=== PATIENT | male | born 1930 | race Asian ===

== ENCOUNTER 2017-06-30 01:21 | Inpatient (IN) | payer OTHER, MEDICARE ==
--- NOTE | 2017-06-30 01:31 | PDOC ---
History of Present Illness - General Chief Complaint: Pain Stated Complaint: ABD PAIN Time Seen by Provider: 06/30/17 01:30 - History of Present Illness Initial Comments: 06/30/17 01:52 This 86-year-old man with a history of prediabetes and BPH presents with 2 day history of nausea and abdominal pain. Patient states that he ate a hamburger 2 nights ago and subsequently developed abdominal pain. Pain is dull and intermittent, periumbilical in location. He also describes nausea and vomiting , especially after eating or drinking anything. Patient has a long history of gallstones and has had acute biliary colic in the past. He states that he would decrease his oral intake when experiencing biliary colic and pain would resolve within a day. No history of gallbladder pain resulting in hospitalization. No history of acute pancreatitis or other pancreatic issues. He has had no previous abdominal surgery. Patient is approximately 4 weeks s/p blue laser procedure for BPH Medications Metformin Past History - Past Medical History Allergies/Adverse Reactions: Allergies Allergy/AdvReac Type Severity Reaction Status Date / Time No Known Allergies Allergy Unverified 06/30/17 01:27 Home Medications: Ambulatory Orders Glyburide 5 mg PO DAILY 06/30/17 Metformin HCl [Glucophage] 1,000 mg PO BID 06/30/17 Diabetes: Yes - Psycho/Social/Smoking Cessation Hx Anxiety: No Suicidal Ideation: No Smoking History: Unknown if ever smoked Have you smoked in the past 12 months: No Number of Cigarettes Smoked Daily: 0 Information on smoking cessation initiated: No Hx Alcohol Use: No Drug/Substance Use Hx: No Substance Use Type: None Review of Systems - Review of Systems Able to Perform ROS?: Yes Comments:: 12 point review of systems is negative except for what is noted in the history of present illness *Physical Exam - Vital Signs Last Vital Signs Temp Pulse Resp BP Pulse Ox 98.4 F 68 14 125/64 100 06/30/17 01:23 06/30/17 01:23 06/30/17 01:06/30/17 01:06/30/17 01:23 - Physical Exam Comments: GENERAL: Elderly man, alert and oriented 3, in mild distress secondary to abdominal pain HEAD: Normal with no signs of trauma. EYES: PERRLA, EOMI, sclera anicteric, conjunctiva clear. ENT: Ears normal, nares patent, oropharynx clear without exudates. Dry mucous membranes. NECK: Normal range of motion, supple without lymphadenopathy, JVD, or masses. LUNGS: Breath sounds equal, clear to auscultation bilaterally. No wheezes, and no crackles. HEART:Regular rate and rhythm, normal S1 and S2 without murmur, rub or gallop. ABDOMEN:.normal bowel sounds No guarding,tenderness or rebound.No masses No distention. No Dupont sign EXTREMITIES: Normal range of motion, no edema. No clubbing or cyanosis. No erythema, or tenderness. NEUROLOGICAL: Cranial nerves II through XII grossly intact. Normal speech. No focal neurological deficits. MUSCULOSKELETAL: Back non-tender to palpation, no CVA tenderness SKIN: Warm, Dry, normal turgor, no rashes or lesions noted. 12 lead EKG is is performed. This shows sinus bradycardia at 57 bpm; axis, wave forms and intervals are normal. There is no acute ST or T-wave abnormalities. ED Treatment Course - LABORATORY CBC & Chemistry Diagram: 07/01/17 07:00 07/01/17 07:00 Progress Note - Progress Note Progress Note: Laboratory evaluation notable for white blood cell, 15,300 with a predominance of neutrophils. RBCs are microcytic and hypochromic. Chemistry profile reveals BUN of 46 with creatinine 1.7 ( creatinine clearance of 38). No previous laboratory values are obtainable. CK and troponin are negative. Lipase is 228 (within normal limits). Urinalysis notable for microscopic exam showing 164 RBCs/1397 WBCs with moderate bacteria Abdominal/pelvic CT performed to evaluate for cause for patient's mid abdominal pain (especially in light of normal lipase value). CT notable for atrophic/calcified pancreas consistent with chronic pancreatitis. Along with this finding, there is significant duodenitis, especially with distal wall thickening. No evidence of bowel obstruction, abscess or free air. There are multiple gallstones without distinct gallbladder inflammation. No biliary duct dilatation is present. Bladder is somewhat dilated with mass at the base of the bladder, consistent with enlarged prostate gland. No clear obstructive uropathy Patient had recurrence of mid abdominal pain requiring 2 doses of morphine; he also had nausea requiring Zofran 4 mg IV ([address] doses). [address] completed, patient again had recurrence of his midabdominal pain and given Dilaudid 0.5 [address] of CT and blood work discussed with the patient and his son. Patient has had symptoms consistent with a UTI since his bluelight laser procedure 1 month ago; he states that he is been on multiple antibiotics (cannot recall name ) without apparent resolution. Patient cannot recall previous diagnosis of peptic ulcer disease. He takes antacid tablets on a daily basis but has never had upper endoscopy as far as he can remember. No history of Crohn's disease or other inflammatory bowel disease. Because of the patient's persistent nausea/abdominal pain, evidence of duodenitis/chronic pancreatitis/UTI with elevated white blood cell count, patient will require admission for control of pain/nausea and further evaluation of his duodenitis. Also, patient was given a reduced dose (2.25 g) of Zosyn IV for treatment of apparent persistent UTI. Culture and sensitivity of urine sample sent. Medical Decision Making - Medical Decision Making 06/30/17 06:[address] Patient[address] Krause. Case discussed with [facility] service: Patient will be admitted to 's service for IV hydration, pain control and further diagnostic evaluation. 06/30/17 06:47 Patient's family has expressed concern that he is not being admitted to his [facility] s admitting hospital ([place]) Called Dr. Krause' answering service and was connected with covering physician, (with whom patient had spoken at midnight). He states that it is in the patient's best interest to remain here at [facility], considering that admission will likely not be protracted. He will contact Dr Krause and relay this information *DC/Admit/Observation/Transfer Diagnosis at time of Disposition: Acute duodenitis Chronic pancreatitis Qualifiers: Pancreatitis type: idiopathic Qualified Code(s): K86.1 - Other chronic pancreatitis UTI (urinary tract infection) Qualifiers: Urinary tract infection type: site unspecified Hematuria presence: without hematuria Qualified Code(s): N39.0 - Urinary tract infection, site not specified - Discharge Dispostion Condition at time of disposition: Stable Admit: Yes
[2017-06-30] MEDS ORDERED: KETOROLAC TROMETHAMINE 30 MG/1 ML VIAL IVPUSH ONE (01:32)
[2017-06-30] MEDS ORDERED: SODIUM CHLORIDE 1,000 ML IV STA (01:32)
[2017-06-30] MEDS ORDERED: ONDANSETRON 4 MG/2 ML VIAL IVPUSH ONE ×2 (01:49→02:37)
[2017-06-30] MEDS ORDERED: ONDANSETRON 4 MG/2 ML VIAL ONE ×2 (02:03→02:37)
[2017-06-30] MEDS ORDERED: KETOROLAC TROMETHAMINE 30 MG/1 ML VIAL ONE (02:03)
[2017-06-30 02:11] LABS: BASOPHIL 0.1 % (0-2.0); EOSINOPHIL 0.1 % (0-4.5); MCHC 31.3 g/dl (32.0-35.9); MEAN CELL VOLUME 63.9 fl (80-96); MEAN PLT VOLUME 9.9 fl (7.5-11.1); NEUTROPHILS 83.7 % (42.8-82.8); PLATELET COUNT 143 K/MM3 (134-434); RDW 15.5 % (11.9-15.9); WHITE BLOOD COUNT 15.3 K/mm3 (4.0-10.0)
[2017-06-30 02:19] LABS: URINE APPEARANCE CLOUDY; URINE BILIRUBIN NEGATIVE (NEGATIVE); URINE BLOOD 2+ (NEGATIVE); URINE COLOR YELLOW; URINE GLUCOSE (UA) NEGATIVE (NEGATIVE); URINE KETONE TRACE (NEGATIVE); URINE NITRITE NEGATIVE (NEGATIVE); URINE UROBILINOGEN NEGATIVE mg/dL (0.2-1.0)
[2017-06-30 02:20] LABS: URINE LEUK ESTERASE 3+ (NEGATIVE); URINE PROTEIN 1+ (NEGATIVE)
[2017-06-30 02:26] LABS: URINE BACTERIA MODERATE /hpf (NONE SEEN); URINE MUCUS RARE; URINE RBC 164 /hpf (0-3); URINE WBC 1397 /hpf (3-5)
[2017-06-30 02:43] LABS: ALBUMIN 3.3 g/dl (3.4-5.0); ALK PHOS 58 U/L (45-117); ANION GAP 12 (8-16); BILIRUBIN,TOTAL 0.6 mg/dL (0.2-1.0); CALCIUM 8.9 mg/dL (8.5-10.1); CO2 22 mmol/L (21-32); CREATININE 1.7 mg/dL (0.7-1.3); GLUCOSE,RANDOM 216 mg/dL (74-106); SGOT/AST 21 U/L (15-37); SGPT/ALT 31 U/L (12-78); TOT PROT 7.7 g/dl (6.4-8.2)
[2017-06-30 02:47] LABS: CPK 142 IU/L (39-308); TROPONIN I < 0.02 ng/ml (0.00-0.05)
[2017-06-30 02:52] LABS: INR 1.04 (0.82-1.09); PROTHROMBIN TIME (PATIENT) 11.4 SEC (9.98-11.88)
[2017-06-30] MEDS ORDERED: morphine CARPU-JECT 2 MG/1 ML DISP.SYRIN IVPUSH ONE ×3 (03:41→04:47)
[2017-06-30] MEDS ORDERED: morphine CARPU-JECT 2 MG/1 ML DISP.SYRIN ONE ×2 (03:43→03:55)
[2017-06-30] MEDS ORDERED: HYDROmorphone HCL CARPU-JECT 1 MG/1 ML DISP.SYRIN IVPUSH ONE ×2 (05:27→08:03)
[2017-06-30] MEDS ORDERED: PIPERACILLIN/TAZOB 2.25 GM 2.25 GM in DEXTROSE 5%-WATER - 50 ML IVPB ONE (05:28)
[2017-06-30] MEDS ORDERED: PIPERACILLIN/TAZOBACTAM 3.375 GM VIAL IVPB ONE (05:30)
[2017-06-30] MEDS ORDERED: HYDROmorphone HCL CARPU-JECT 1 MG/1 ML DISP.SYRIN ONE ×2 (05:30→07:57)
[2017-06-30] MEDS ORDERED: FAMOTIDINE 20 MG/50 ML IVPB 50 ML IVPB ONE ×2 (05:46→06:01)
[2017-06-30 06:30] LABS: ANISOCYTOSIS 1+; HYPOCHROMIA 2+; MICROCYTOSIS 2+; PLATELET ESTIMATE ADEQUATE (NORMAL)
--- NOTE | 2017-06-30 08:29 | HP ---
CHIEF COMPLAINT: abdominal discomfort PCP: Dr Krause ([place]) Urologist: Dr Malik ([place]) HISTORY OF PRESENT ILLNESS: Patient is a 86 y/o male with a past medical history of NIDDM and BPH. patient is s/p greenlight procedure, 06/07/17, Dr Guerrero at [facility]. Patient reports ongoing urinary tract infections since the procedure and was treated with several antibiotics. He was last treated with antibiotics on Tuesday, , he is unable to recall the name. Patient reports awakening on Tuesday, 06/27 with ongoing epigastric pain. At first he attributed his symptoms to an acute billary attack and decreased his po intake. He reports the abdominal pain worsened within the past 3 days. In addition, he also reports chills and rigors early this AM with worsening of abdominal pain as result he drove himself to the emergency department. ER course was notable for: (1) ct of abd/pelvis w/o contrast: mild left-sided hydronephrosis, thick-walled urinary bladder,slightly thickened duodenem suspicious for dueodenitis, cholelithasis, chronic pancreatitis (2) wbc 15.3 (3) creatine 1.7 Recent Travel: none PAST MEDICAL HISTORY: niddm and bph PAST SURGICAL HISTORY: green light procedure 06/07/17 Social History: resides at home with Smoking: none Alcohol:none Drugs: none Family History: noncontributory Allergies No Known Allergies Allergy (Unverified 06/30/17 01:27) HOME MEDICATIONS: Home Medications Medication Instructions Recorded Glyburide 5 mg PO DAILY 06/30/17 Metformin HCl [Glucophage] 1,000 mg PO BID 06/30/17 REVIEW OF SYSTEMS CONSTITUTIONAL: Absent: fever, chills, diaphoresis, generalized weakness, malaise, loss of appetite, weight change HEENT: Absent: rhinorrhea, nasal congestion, throat pain, throat swelling, difficulty swallowing, mouth swelling, ear pain, eye pain, visual changes CARDIOVASCULAR: Absent: chest pain, syncope, palpitations, irregular heart rate, lightheadedness , peripheral edema RESPIRATORY: Absent: cough, shortness of breath, dyspnea with exertion, orthopnea, wheezing, stridor, hemoptysis GASTROINTESTINAL: Present: abdominal pain, nausea Absent:abdominal distension, vomiting, diarrhea, constipation, melena, hematochezia GENITOURINARY: Absent: dysuria, frequency, urgency, hesitancy, hematuria, flank pain, genital pain MUSCULOSKELETAL: Absent: myalgia, arthralgia, joint swelling, back pain, neck pain SKIN: Absent: rash, itching, pallor HEMATOLOGIC/IMMUNOLOGIC: Absent: easy bleeding, easy bruising, lymphadenopathy, frequent infections ENDOCRINE: Absent: unexplained weight gain, unexplained weight loss, heat intolerance, cold intolerance NEUROLOGIC: Absent: headache, focal weakness or paresthesias, dizziness, unsteady gait, seizure, mental status changes, bladder or bowel incontinence PSYCHIATRIC: Absent: anxiety, depression, suicidal or homicidal ideation, hallucinations. PHYSICAL EXAMINATION GENERAL: Awake, alert, and fully oriented, in no acute distress. HEAD: Normal with no signs of trauma. EYES: Pupils equal, round and reactive to light, extraocular movements intact, sclera anicteric, conjunctiva clear. No lid lag. EARS, NOSE, THROAT: Ears normal, nares patent, oropharynx clear without exudates. dry mucous membranes. NECK: Normal range of motion, supple without lymphadenopathy, JVD, or masses. LUNGS: Breath sounds equal, clear to auscultation bilaterally. No wheezes, and no crackles. No accessory muscle use. HEART: Regular rate and rhythm, normal S1 and S2 without murmur, rub or gallop. ABDOMEN: Soft, + suprapubic tenderness, not distended, normoactive bowel sounds , no guarding, no rebound, no masses. No hepatomegaly or splenomegaly. MUSCULOSKELETAL: Normal range of motion at all joints. No bony deformities or tenderness. No CVA tenderness. UPPER EXTREMITIES: 2+ pulses, warm, well-perfused. No cyanosis. No clubbing. No peripheral edema. LOWER EXTREMITIES: 2+ pulses, warm, well-perfused. No calf tenderness. No peripheral edema. NEUROLOGICAL: Cranial nerves II-XII intact. Normal speech. Normal gait. PSYCHIATRIC: Cooperative. Good eye contact. Appropriate mood and affect. SKIN: Warm, dry, normal turgor, no rashes or lesions noted, normal capillary refill. ASSESSMENT/PLAN: F/E/N - diabetic diet - replete electrolytes prn ppx - heparin - protonix - oob - scd dispo: requires inpatient admission Problem List - Problem (1) Acute duodenitis Assessment/Plan: - start protonix - bland diet - follow up with GI as outpatient Code(s): K29.80 - DUODENITIS WITHOUT BLEEDING (2) UTI (urinary tract infection) Assessment/Plan: - s/p greenlight procedure, recent instrumentation, start zosyn, appreciate ID input for antibiotic approval - trend wbc and monitor fever curve - follow up urine and blood cultures - appreciate urology input Code(s): N39.0 - URINARY TRACT INFECTION, SITE NOT SPECIFIED Qualifiers: Urinary tract infection type: site unspecified Hematuria presence: without hematuria Qualified Code(s): N39.0 - Urinary tract infection, site not specified; R31.9 - Hematuria, unspecified (3) Diabetes Assessment/Plan: - fingersticks achs with regular insulin sliding scale Code(s): E11.9 - TYPE 2 DIABETES MELLITUS WITHOUT COMPLICATIONS (4) FERMNI (acute kidney injury) Assessment/Plan: - creatine 1.7, unknown baseline, no urinary retention noted on ct scan - fermin likely secondary to hypovolemia, gentle iv hydration, repeat creatine 1400 Code(s): N17.9 - ACUTE KIDNEY FAILURE, UNSPECIFIED Visit type - Emergency Visit Emergency Visit: Yes ED Registration Date: 06/30/17 Care time: The patient presented to the Emergency Department on the above date and was hospitalized for further evaluation of their emergent condition. - New Patient This patient is new to me today: No - Critical Care Critical Care patient: No
[2017-06-30] MEDS ORDERED: ACETAMINOPHEN 325 MG TABLET (FP) PO PRN (09:24)
[2017-06-30] MEDS: PIPERACILLIN/TAZOB 3.375 GM 50 ML IVPB SCH ×2 (11:06→18:58)
[2017-06-30] MEDS: PANTOPRAZOLE SODIUM 100 ML IVPB SCH (11:06)
[2017-06-30] MEDS: HEPARIN NA (PORCINE) 5,000 UNITS/ML 1ML VIAL SQ SCH ×2 (11:06→18:58)
[2017-06-30 11:52] VITALS: BMI 27.3
[2017-06-30] MEDS ORDERED: SODIUM CHLORIDE 1,000 ML IV SCH (12:00)
[2017-06-30] MEDS: INSULIN SLIDING SCALE (NOVOLOG) 1 VIAL SQ SCH ×3 (12:00→21:48)
[2017-06-30] MEDS: LACTOBACILLUS ACIDOPHILUS 1 EACH TAB (FP) PO SCH (13:00)
[2017-06-30 14:25] LABS: MCHC 31.9 g/dl (32.0-35.9); MEAN CELL VOLUME 65.9 fl (80-96); MEAN PLT VOLUME 8.7 fl (7.5-11.1); PLATELET COUNT 122 K/MM3 (134-434); WHITE BLOOD COUNT 10.7 K/mm3 (4.0-10.8)
[2017-06-30 16:25] LABS: ANION GAP 4 (8-16); CALCIUM 7.7 mg/dl (8.4-10.2); CO2 21 mmol/L (22-28); CREATININE 1.5 mg/dl (0.6-1.3); GLUCOSE,RANDOM 182 mg/dl (74-106)
--- NOTE | 2017-06-30 16:42 | PN ---
Progress Note (short form) - Note Progress Note: ID Consult dictated Emphysematous cystitis/UTI ? Peptic ulcer disease Cholelithiasis Azotemia Pending c/s empiric zosyn evaluation Consider GI evaluation
--- NOTE | 2017-06-30 17:29 | CONS ---
INFECTIOUS DISEASE CONSULTATION DATE OF CONSULTATION: 06/30/2017 HISTORY OF PRESENT ILLNESS: The patient is an 86-year-old male with history of diabetes mellitus, BPH, evaluated for abdominal pain syndrome and leukocytosis. The patient reports developing abdominal pain approximately 2 days prior to admission. He began to develop episodic abdominal discomfort localizing to the supraumbilical area and epigastrium. He states he has had similar symptoms in the past, which were relieved by fasting. The symptoms occurred after he had consumed a meal at [facility]. It became progressively worse to the point where he presented to the hospital. In the emergency room, a CAT scan of the abdomen and pelvis was performed and showed evidence of chronic pancreatitis, cholelithiasis, thickened duodenum, as well as mild left hydronephrosis, thick-walled bladder with air. The patient denies any vomiting. He had been belching. He moved his bowels after he arrived in the hospital. Denies any recent diarrhea, melena, or hematochezia. He denied any associated fever or chills. Of note, the patient underwent a BlueLight laser treatment of the prostate on june 07, 2017. He reports that his postoperative course was complicated by cystitis for which he received several oral antibiotics. He was unaware of the name of the antibiotics, however. He denies being informed of any positive urine cultures or resistant urinary pathogens. PAST MEDICAL HISTORY: Positive for diabetes mellitus, BPH, cholelithiasis. ALLERGIES: No known allergies. MEDICATIONS: Include Tylenol, heparin, Bacid, NovoLog, Zofran. SOCIAL HISTORY: He lives at home. He is a non-smoker, non-drinker. SYSTEMS REVIEW: Neurologic: No loss of consciousness, seizure activity, or focal weakness. Cardiac: Negative chest pain or palpitations. Respiratory: Negative cough or sputum production. Gastrointestinal: As per HPI. Genitourinary: Negative for dysuria. Positive for gross hematuria post procedure. LABORATORY DATA: White count on admission 15.3, presently 10.7; hematocrit 31.7; platelet count 122. BUN 46, creatinine 1.7. Liver enzymes normal. Urinalysis: White cells 1397. Culture is pending. PHYSICAL EXAMINATION: General: He is awake and alert, in no acute distress, not acutely toxic appearing. Vital Signs: Temperature 97.7; blood pressure 102/52; pulse 62, regular; respirations 20 per minute. HEENT: Sclerae anicteric. Heart: Sounds S1, S2. Lungs: Clear. Abdomen: Soft. Positive bowel sounds. There is mild tenderness present, supraumbilical area. There is no epigastric or right upper quadrant tenderness. No suprapubic tenderness. Extremities: Negative for edema. IMPRESSION: 1. Emphysematous cystitis. 2. Urinary tract infection. 3. Possible peptic ulcer disease. 4. Cholelithiasis. 5. Azotemia. 6. Leukocytosis. Considerations for abdominal pain include peptic ulcer disease in light of thickened duodenum, biliary tract disease in light of cholelithiasis. Patient with radiographic evidence of emphysematous cystitis. Await culture results, urology evaluation, empiric antibiotic coverage, gastrointestinal and genitourinary pathogens with Zosyn 3.375 g IV piggyback every 8 hours, analgesics. Case discussed with the patient's son present at the time of the examination. Thank you for the kind referral. SHUKRI ARCHIBALD M.D. [id number]
[2017-06-30] MEDS: MELATONIN 5 MG TABLETS PO SCH (22:40)
[2017-07-01] MEDS: PIPERACILLIN/TAZOB 3.375 GM 50 ML IVPB SCH ×3 (01:22→18:12)
[2017-07-01] MEDS: HEPARIN NA (PORCINE) 5,000 UNITS/ML 1ML VIAL SQ SCH ×2 (01:23→09:43)
[2017-07-01] MEDS: INSULIN SLIDING SCALE (NOVOLOG) 1 VIAL SQ SCH ×4 (06:14→21:31)
[2017-07-01 07:36] LABS: BASOPHIL 0.3 % (0-2.0); EOSINOPHIL 1.1 % (0-4.5); MCH 20.4 pg (25.7-33.7); MCHC 31.1 g/dl (32.0-35.9); MEAN CELL VOLUME 65.6 fl (80-96); MEAN PLT VOLUME 8.7 fl (7.5-11.1); NEUTROPHILS 76.3 % (42.8-82.8); PLATELET COUNT 115 K/MM3 (134-434)
[2017-07-01 07:46] LABS: PLATELET ESTIMATE ADEQUATE (NORMAL)
[2017-07-01 07:47] LABS: HYPOCHROMIA 1+; MICROCYTOSIS 2+
[2017-07-01 07:52] LABS: ANION GAP 5 (8-16); CALCIUM 7.8 mg/dl (8.4-10.2); CO2 20 mmol/L (22-28); CREATININE 1.4 mg/dl (0.6-1.3); GLUCOSE,RANDOM 138 mg/dl (74-106); MAGNESIUM 1.7 mg/dL (1.8-2.4); PHOSPHOROUS 2.3 mg/dl (2.5-4.6)
[2017-07-01] MEDS: LACTOBACILLUS ACIDOPHILUS 1 EACH TAB (FP) PO SCH (09:43)
[2017-07-01] MEDS: PANTOPRAZOLE SODIUM 100 ML IVPB SCH (09:43)
--- NOTE | 2017-07-01 10:00 | PN ---
Progress Note, Physician History of Present Illness: Comfortable at present. Reports periumbilical abdominal pain past 24hr on a pain scale of 2/10 + Belching No vomiting. No BM reported No fever/ chills WBC, plt decreased No dysuria/ hematuria Tolerating antibiotics Cultures pending - Current Medication List Current Medications: Active Medications Acetaminophen (Tylenol -) 650 mg PO Q4H PRN PRN Reason: FEVER OR PAIN Heparin Sodium (Porcine) (Heparin -) 5,000 unit SQ Q8H [facility] Last Admin: 07/01/17 09:43 Dose: 5,000 unit Pantoprazole Sodium (Protonix 40mg Ivpb (Pre-Docked)) 100 mls @ 200 mls/hr IVPB DAILY JESSY Last Admin: 07/01/17 09:43 Dose: 200 mls/hr Piperacillin Sod/Tazobactam Sod (Zosyn 3.375gm Ivpb (Pre-Docked)) 50 mls @ 100 mls/hr IVPB Q8H-IV JESSY PRN Reason: Protocol Last Admin: 07/01/17 09:44 Dose: 100 mls/hr Insulin Aspart (Novolog Vial Sliding Scale -) 0 vial SQ ACHS JESSY PRN Reason: Protocol Last Admin: 07/01/17 06:14 Dose: Not Given Lactobacillus Acidophilus (Bacid -) 1 tab PO DAILY [facility] Last Admin: 07/01/17 09:43 Dose: 1 tab Melatonin (Melatonin) 5 mg PO HS [facility] Last Admin: 06/30/17 22:40 Dose: 5 mg - Objective Vital Signs: Vital Signs Temperature 99.0 F 07/01/17 06:00 Pulse Rate 61 07/01/17 06:00 Respiratory Rate 18 07/01/17 06:00 Blood Pressure 125/56 07/01/17 06:00 O2 Sat by Pulse Oximetry (%) 94 L 07/01/17 06:08 Constitutional: Yes: No Distress Eyes: Yes: Conjunctiva Clear Cardiovascular: Yes: Regular Rate and Rhythm, S1, S2 Respiratory: Yes: CTA Bilaterally Gastrointestinal: Yes: Normal Bowel Sounds, Soft. No: Tenderness Edema: No Labs: CBC, BMP 07/01/17 07:00 07/01/17 07:00 INR, PTT INR 1.04 (0.82-1.09) 06/30/17 02:00 Assessment/Plan Abdominal pain syndrome ? PUD ? Biliary tract disease Emphysematous cystitis/ UTI Hydronephrosis Azotemia Leukocytosis- improved Thrombocytopenia- improved Await c/s Continue empiric coverage /GI pathogens with zosyn Urology evaluation Would obtain GI evaluation for abdominal pain syndrome/ thickened/ inflamed duodenum on CT
[2017-07-01] MEDS ORDERED: MAGNESIUM SULFATE 2 GM in SODIUM CHLORIDE 100 ML IVPB ONE (10:24)
--- NOTE | 2017-07-01 10:26 | EKG ---
Test Reason : Blood Pressure : / mmHG Vent. Rate : 057 BPM Atrial Rate : 057 BPM P-R Int : 190 ms QRS Dur : 102 ms QT Int : 466 ms P-R-T Axes : 049 -25 -04 degrees QTc Int : 453 ms SINUS BRADYCARDIA NONSPECIFIC ST ABNORMALITY NO PREVIOUS ECGS AVAILABLE Confirmed by SHUKRI MORENO MD ([id number]) on 07/01/2017 10:26:04 AM Referred By: MD ROBERTSON Confirmed By:SHUKRI MORENO MD
--- NOTE | 2017-07-01 10:44 | PN ---
Physical Exam: SUBJECTIVE: Patient seen and examined, patient reports decreased appetite and one episode of black tarry stools. OBJECTIVE:Patient is a 86 y/o male with a past medical history of NIDDM, and BPH. patient is s/p greenlight procedure, 06/07/17. patient was admitted from the emergency department for urinary tract infection and duoedenitis Vital Signs Period Temp Pulse Resp BP Sys/Akins Pulse Ox Last 24 Hr 97.7 F-99.0 F 56-62 18-18 102-134/52-66 94-96 GENERAL: The patient is awake, alert, and fully oriented, in no acute distress. HEAD: Normal with no signs of trauma. EYES: PERRL, extraocular movements intact, sclera anicteric, conjunctiva clear. No ptosis. ENT: Ears normal, nares patent, oropharynx clear without exudates, moist mucous membranes. NECK: Trachea midline, full range of motion, supple. LUNGS: Breath sounds equal, clear to auscultation bilaterally, no wheezes, no crackles, no accessory muscle use. HEART: Regular rate and rhythm, S1, S2 without murmur, rub or gallop. ABDOMEN: Soft, suprapubic tenderness, epigastric tenderness, nondistended, normoactive bowel sounds, no guarding, no rebound, no hepatosplenomegaly, no masses. EXTREMITIES: 2+ pulses, warm, well-perfused, no edema. NEUROLOGICAL: Cranial nerves II through XII grossly intact. Normal speech, gait not observed. PSYCH: Normal mood, normal affect. SKIN: Warm, dry, normal turgor, no rashes or lesions noted Laboratory Results - last 24 hr 06/30/17 06/30/17 06/30/17 08:30 11:29 14:05 WBC 10.7 RBC 4.82 Hgb 10.1 L Hct 31.7 L MCV 65.9 L MCH 21.0 L MCHC 31.9 L RDW 14.0 Plt Count 122 L MPV 8.7 Neutrophils % Y Lymphocytes % Y Monocytes % Eosinophils % Basophils % Hypochromia Platelet Estimate Microcytosis Sodium Potassium Chloride Carbon Dioxide Anion Gap BUN Creatinine POC Glucometer 211 Random Glucose Lactic Acid 1.0 Calcium Phosphorus Magnesium 06/30/17 06/30/17 06/30/17 14:05 16:52 21:42 WBC RBC Hgb Hct MCV MCH MCHC RDW Plt Count MPV Neutrophils % Lymphocytes % Monocytes % Eosinophils % Basophils % Hypochromia Platelet Estimate Microcytosis Sodium 135 L Potassium 4.0 Chloride 110 H Carbon Dioxide 21 L Anion Gap 4 L BUN 40 H Creatinine 1.5 H POC Glucometer 168 204 Random Glucose 182 H Lactic Acid Calcium 7.7 L Phosphorus Magnesium 07/01/17 07/01/17 07/01/17 06:11 07:00 07:00 WBC 10.0 RBC 4.64 Hgb 9.4 L Hct 30.4 L MCV 65.6 L MCH 20.4 L MCHC 31.1 L RDW 14.0 Plt Count 115 L MPV 8.7 Neutrophils % 76.3 Lymphocytes % 15.3 Monocytes % 7.0 Eosinophils % 1.1 Basophils % 0.3 Hypochromia 1+ Platelet Estimate Adequate Microcytosis 2+ Sodium 137 Potassium 3.9 Chloride 112 H Carbon Dioxide 20 L Anion Gap 5 L BUN 28 H D Creatinine 1.4 H POC Glucometer 144 Random Glucose 138 H D Lactic Acid Calcium 7.8 L Phosphorus 2.3 L Magnesium 1.7 L Active Medications Generic Name Dose Route Start Last Admin Trade Name Freq PRN Reason Stop Dose Admin Acetaminophen 650 mg 06/30/17 09:24 Tylenol - PO Q4H PRN FEVER OR PAIN Heparin Sodium (Porcine) 5,000 unit 06/30/17 10:00 07/01/17 09:43 Heparin - SQ 5,000 unit Q8H JESSY Administration Pantoprazole Sodium 100 mls @ 200 mls/hr 06/30/17 10:00 07/01/17 09:43 Protonix 40mg Ivpb (Pre-Docked) IVPB 200 mls/hr DAILY JESSY Administration Piperacillin Sod/Tazobactam Sod 50 mls @ 100 mls/hr 06/30/17 10:45 07/01/17 09: 44 Zosyn 3.375gm Ivpb (Pre-Docked) IVPB 100 mls/hr Q8H-IV JESSY Administration Protocol Insulin Aspart 0 vial 06/30/17 07:00 07/01/17 06:14 Novolog Vial Sliding Scale - SQ Not Given ACHS JESSY Protocol Lactobacillus Acidophilus 1 tab 06/30/17 11:30 07/01/17 09:43 Bacid - PO 1 tab DAILY JESSY Administration Magnesium Sulfate 2 gm 07/01/17 11:00 Magnesium Sulfate IVPB 09/15/17 11:01 ONCE ONE Melatonin 5 mg 06/30/17 22:00 06/30/17 22:40 Melatonin PO 5 mg HS JESSY Administration Microbiology 06/30/17 08:29 Urine - Urine Clean Catch Urine Culture - Preliminary Lactose Fermenting Neg Bacilli Pending Organism 06/30/17 10:55 Blood - Peripheral Venous Blood Culture - Preliminary NO GROWTH OBTAINED AFTER 24 HOURS, INCUBATION TO CONTINUE FOR 4 DAYS. 06/30/17 10:45 Blood - Peripheral Venous Blood Culture - Preliminary NO GROWTH OBTAINED AFTER 24 HOURS, INCUBATION TO CONTINUE FOR 4 DAYS. ASSESSMENT/PLAN: 1) upper GI bleed - microcytic anemia noted and one episode of black tarry stools, start protonix gtt, case discussed with Dr Gonzáles (GI) since patient had small amounts of food at 0730, unable to perform egd today, pt to start clear liquid diabetic diet, strict monitoring of h/h if any further melena is noted, pt is to undergo emergent egd - continue protonix gtt - repeat h/h in am - GI, (Eliecer) consulted and following 2) urinary tract infection - case discussed with Dr Guerrero pt's private urologist at [place], s/p greenlight 06/07/17 (several bladder stones removed), pt has chronic uti for the past 3 years, last treated with doxycline on 05/19/17 - continue zosyn, prelim urine culture lactose fermenting bacilil, pending final - leukocytosis resolved, pt afebrile - ID (Zhang) consulted and followed - appreciate urology input 3) NIDDM - fingersticks achs with regular insulin sliding scale 4) fermin - creatine 1.4 downtrending, likely secondary to hypovolemia - repeat bmp in am F/E/N - diabetic diet - replete electrolytes prn ppx - heparin - protonix - oob - scd dispo: requires inpatient admission Problem List - Problem Problem List - Problems (1) UTI (urinary tract infection) Code(s): N39.0 - URINARY TRACT INFECTION, SITE NOT SPECIFIED Qualifiers: Urinary tract infection type: site unspecified Hematuria presence: without hematuria Qualified Code(s): N39.0 - Urinary tract infection, site not specified; R31.9 - Hematuria, unspecified (2) Diabetes Code(s): E11.9 - TYPE 2 DIABETES MELLITUS WITHOUT COMPLICATIONS (3) FERMIN (acute kidney injury) Code(s): N17.9 - ACUTE KIDNEY FAILURE, UNSPECIFIED (4) Upper GI bleed Code(s): K92.2 - GASTROINTESTINAL HEMORRHAGE, UNSPECIFIED (5) Duodenitis with bleeding Code(s): K29.81 - DUODENITIS WITH BLEEDING Visit type - Emergency Visit Emergency Visit: Yes ED Registration Date: 06/30/17 Care time: The patient presented to the Emergency Department on the above date and was hospitalized for further evaluation of their emergent condition. - New Patient This patient is new to me today: No - Critical Care Critical Care patient: No - Discharge Referral Referred to [facility] Med P.C.: No
[2017-07-01] MEDS ORDERED: MAGNESIUM SULF 50% (8.12 MEQ/2 ML-1 GM VIAL) IVPB ONE (11:00)
[2017-07-01] MEDS ORDERED: SODIUM PHOSPHATE - 15 MM in SODIUM CHLORIDE 250 ML IVPB ONE (12:00)
[2017-07-01] MEDS: PANTOPRAZOLE SODIUM 80 MG in SODIUM CHLORIDE 100 ML IVPB SCH ×2 (13:06→21:32)
[2017-07-01] MEDS ORDERED: LIDOCAINE HCL/PF 2% SDV 5ML VIAL ONE (13:19)
[2017-07-01] MEDS ORDERED: PROPOFOL 20 ML ONE ×2 (13:20)
[2017-07-01] MEDS: MELATONIN 5 MG TABLETS PO SCH (22:26)
[2017-07-01] MEDS ORDERED: PT OWN MED DRAWER 7, Y5N ONE (22:30)
[2017-07-02] MEDS: PIPERACILLIN/TAZOB 3.375 GM 50 ML IVPB SCH ×2 (01:29→09:50)
[2017-07-02] MEDS: INSULIN SLIDING SCALE (NOVOLOG) 1 VIAL SQ SCH (06:55)
[2017-07-02 06:56] VITALS: BP 118/62; PULSE 64; TEMP 97.5
[2017-07-02 09:31] LABS: BASOPHIL 0.5 % (0-2.0); EOSINOPHIL 3.5 % (0-4.5); MCHC 30.8 g/dl (32.0-35.9); MEAN CELL VOLUME 65.1 fl (80-96); MEAN PLT VOLUME 8.2 fl (7.5-11.1); NEUTROPHILS 65.2 % (42.8-82.8); PLATELET COUNT 134 K/MM3 (134-434); RDW 13.9 % (11.9-15.9)
[2017-07-02] MEDS: LACTOBACILLUS ACIDOPHILUS 1 EACH TAB (FP) PO SCH (10:00)
[2017-07-02 10:06] LABS: ANION GAP 7 (8-16); CALCIUM 8.1 mg/dl (8.4-10.2); CO2 22 mmol/L (22-28); CREATININE 1.2 mg/dl (0.6-1.3); GLUCOSE,RANDOM 152 mg/dl (74-106)
[2017-07-02] MEDS ORDERED: VANCOMYCIN 1 GRAM (PRE-DOCKED) 1,000 MG/250 ML BAG IVPB ONE (11:01)
[2017-07-02] MEDS ORDERED: VANCOMYCIN 1 GRAM (PRE-DOCKED) 1,000 MG/250 ML BAG IVPB SCH (11:15)
[2017-07-02] MEDS ORDERED: REFRIGERATED ANITBIOTICS ONE (11:17)
--- NOTE | 2017-07-02 11:47 | DS ---
Physical Exam: SUBJECTIVE: Patient seen and examined Pt denies cp,sob, palpitations, abdominal pain, N/V/D, hematochezia or melena. OBJECTIVE: Vital Signs Period Temp Pulse Resp BP Sys/Akins Pulse Ox Last 24 Hr 97.5 F-98.3 F 56-66 17-19 118-145/60-63 95-100 PHYSICAL EXAM GENERAL: The patient is awake, alert, and fully oriented, in no acute distress. HEAD: Normal with no signs of trauma. EYES: PERRL, extraocular movements intact, sclera anicteric, conjunctiva clear. ENT: Ears normal, nares patent, oropharynx clear without exudates, moist mucous membranes. NECK: Trachea midline, full range of motion, supple. LUNGS: Breath sounds equal, clear to auscultation bilaterally, no wheezes, no crackles, no accessory muscle use. HEART: Regular rate and rhythm, S1, S2 without murmur, rub or gallop. ABDOMEN: Soft, nontender, nondistended, normoactive bowel sounds, no guarding, no rebound, no hepatosplenomegaly, no masses. EXTREMITIES: 2+ pulses, warm, well-perfused, no edema. NEUROLOGICAL: Cranial nerves II through XII grossly intact. Normal speech, gait not observed. PSYCH: Normal mood, normal affect. SKIN: Warm, dry, normal turgor, no rashes or lesions noted. LABS Laboratory Results - last 24 hr 07/01/17 07/01/17 07/01/17 12:12 16:39 17:40 WBC RBC Hgb Hct MCV MCH MCHC RDW Plt Count MPV Neutrophils % Lymphocytes % Monocytes % Eosinophils % Basophils % Sodium Potassium Chloride Carbon Dioxide Anion Gap BUN Creatinine POC Glucometer 193 220 Random Glucose Calcium Magnesium Stool Occult Blood Positive 07/01/17 07/02/17 07/02/17 20:59 06:50 09:25 WBC 8.0 RBC 4.73 Hgb 9.5 L Hct 30.8 L MCV 65.1 L MCH 20.0 L MCHC 30.8 L RDW 13.9 Plt Count 134 MPV 8.2 Neutrophils % 65.2 Lymphocytes % 25.2 D Monocytes % 5.6 Eosinophils % 3.5 D Basophils % 0.5 Sodium Potassium Chloride Carbon Dioxide Anion Gap BUN Creatinine POC Glucometer 136 141 Random Glucose Calcium Magnesium Stool Occult Blood 07/02/17 07/02/17 09:25 09:25 WBC RBC Hgb Hct MCV MCH MCHC RDW Plt Count MPV Neutrophils % Lymphocytes % Monocytes % Eosinophils % Basophils % Sodium 137 Potassium 3.6 Chloride 108 H Carbon Dioxide 22 Anion Gap 7 L BUN 19 H D Creatinine 1.2 POC Glucometer Random Glucose 152 H Calcium 8.1 L Magnesium 1.8 Stool Occult Blood HOSPITAL COURSE: Date of Admission:06/30/17 Date of Discharge: 07/02/17 Minutes to complete discharge: 35 Discharge Summary Reason For Visit: ACUTE DUODENITIS,CHRONIC PANCREATITIS,UTI Current Active Problems FERMIN (acute kidney injury) (Acute) Acute duodenitis (Acute) Chronic pancreatitis (Acute) Diabetes (Acute) Duodenitis with bleeding (Acute) UTI (urinary tract infection) (Acute) Upper GI bleed (Acute) Hospital Course: Patient is a 86 y/o male with a past medical history of NIDDM and BPH,s/p greenlight procedure, 06/07/17, recurrent UTI's, Dr Guerrero at [facility]. Patient reports ongoing urinary tract infections since the procedure and was treated with several antibiotics. He was last treated with antibiotics on 06/26/17, he is unable to recall the name. Patient reports awakening on 06/27/17 with ongoing epigastric pain,denies N/V/D,hx of Motrin and ASA use. In ER found to have cre of 1.7, wbc 15.3. CT of abdomen /pelvis revealed mild left-sided hydronephrosis, thick-walled urinary bladder with air and calcification, emphysematous cystitis,slightly thickened duodenum suspicious for dueodenitis, cholelithasis, chronic pancreatitis. For GI bleed, pt received IV Protonix,CBC/ vital signs stable, remains asymptomatic, no further melena or rectal bleeding noted. Seen by GI Dr. Gonzáles , rec to advance the diet and out pt EGD. Pt wants to followup with his out pt GI Dr. England. * Urinary tract infection : Pt was evaluated by ID , pt received Zosyn during the hospital stay, prelim urine culture lactose fermenting bacilli , Group D Strep,pending final report. Case discussed with ID Dr. Saucedo, rec vancomycin which pt refused. BC preliminary negative. Pt remains afebrile with no leukocytosis. Urology consulted but pt refused stay in the hospital for further w/u. Signed AMA, refused oral antibiotics, pt and informed about the CT report and risk of worsening of infection explained to them. But still signed AMA and left. - Instructions Diet, Activity, Other Instructions: Recommend to followup with primary,urology and GI. Disposition: AGAINST MEDICAL ADVICE - Home Medications Comprehensive Discharge Medication List: Ambulatory Orders Glyburide 5 mg PO DAILY 06/30/17 Metformin HCl [Glucophage] 1,000 mg PO BID 06/30/17 This patient is new to me today: Yes Date on this admission: 07/02/17 Emergency Visit: Yes ED Registration Date: 06/30/17 Care time: The patient presented to the Emergency Department on the above date and was hospitalized for further evaluation of their emergent condition. Critical Care patient: No - Discharge Referral Referred to [facility] Med P.C.: No
--- NOTE | 2017-07-02 19:23 | CONS ---
DATE OF CONSULTATION: HISTORY: The patient is an 86-year-old male with a past medical history of [id number] diabetes mellitus and benign prostatic hypertrophy status post greenlight procedure in May 2017. He has had multiple urinary tract infections and has been treated with antibiotics. He was admitted to the hospital this past Tuesday with complaints of epigastric abdominal pain that have been worsening. He also reported fever and chills as an outpatient. He states that earlier this morning he was feeling fine then he had a bowel movement and noticed the stool to be dark in color. He denies any episodes of hematochezia, nausea, vomiting, hematemesis, or previous episodes of melena. He does not feel dizzy and denies any syncope. He has not had a recent endoscopic evaluation in the past. PAST MEDICAL HISTORY: As listed in the HPI. PAST SURGICAL HISTORY: As listed in the HPI. SOCIAL HISTORY: . Lives at home with his . Denies smoking, alcohol, or drug abuse. FAMILY HISTORY: No history of GI or gynecological malignancies. ALLERGIES: No known drug allergies. HOME MEDICATIONS: Reviewed. REVIEW OF SYSTEMS: Negative except for the pertinent positives listed in the HPI. PHYSICAL EXAMINATION: Vital Signs: Stable. General: A pleasant, elderly man. Cardiovascular: S1, S2. Regular rate and rhythm. Lungs: Bilaterally clear to auscultation. Abdomen: Soft and nontender with normal bowel sounds. Extremities: No edema. LABORATORIES: White blood cell count 10, hemoglobin 9.4, hematocrit 30.4, MCV 65, platelet count 115. On the , he had a hemoglobin of 10.9, and yesterday it came down to 10.1. INR 1.04, sodium 137, potassium 3.9, BUN 28, creatinine 1.4, glucose 138, calcium 7.8, phosphorous 2.3, magnesium 1.7. Urine: 2+ blood, 1+ protein. Cultures are negative so far except for urine culture, which is a preliminary and pending final result. He had a CAT scan done of the abdomen and pelvis on the , which revealed mild left-sided hydronephrosis with dilation of the left ureter down to the urinary bladder. No evidence of an obstructing calculus or mass. Thick-walled urinary bladder with calcification. Prostatic enlargement. Cholelithiasis without evidence of acute cholecystitis. Inflammatory changes about a slightly thickened duodenum suspicious for duodenitis. Pancreatic calcifications consistent with chronic calcific pancreatitis. IMPRESSION: Epigastric abdominal pain and episode of dark stool today suspicious for peptic ulcer disease, angiectasias. I doubt his epigastric abdominal pain is secondary to a biliary etiology at this time. The patient is hemodynamically stable without any sign of an overt gastrointestinal bleed. RECOMMENDATION: Continue Protonix infusion for 72 hours. At that point, we assess, and if no further episodes of bleeding, can change to Protonix 40 mg p.o. b.i.d. Clear liquid diet today. Repeat CBC later today. If his CBC remains stable today and tomorrow, he can slowly be advanced from a dietary perspective. Avoid NSAIDs and trend q.12 for the next 48 hours. Considering he had some breakfast this morning, we will hold off on any invasive procedures today. If he were to need an urgent endoscopy, this can be done over the weekend if needed. We will follow this patient closely with you. DO KRISTINE CHAVEZ/[id number]
[2017-07-04] MEDS ORDERED: PANTOPRAZOLE SODIUM 100 ML IVPB SCH (10:00)
== END 2017-07-02 11:51 | disposition left against medical advice (07) | DRG 438 ==
LOC: FER 01:21 → FM/S 08:08
PROVIDERS: ADMIT Internal Medicine; ATTEND Nurse Practitioner Family
DX: K86.1 Other chronic pancreatitis (principal); K29.81 Duodenitis with bleeding; N39.0 Urinary tract infection, site not specified; N17.9 Acute kidney failure, unspecified; N13.30 Unspecified hydronephrosis; E11.9 Type 2 diabetes mellitus without complications; Z79.84 Long term (current) use of oral hypoglycemic drugs; N40.0 Benign prostatic hyperplasia without lower urinary tract symptoms; D69.6 Thrombocytopenia, unspecified; D50.9 Iron deficiency anemia, unspecified
CPT/HCPCS: 36415; 74176-TC; 80048; 80053; 81003; 81015; 82272; 83605; 83690; 83735; 84100; 84484; 85025; 85610; 87040; 87086; 87186; 93005; 99283-25; J1644